=== PATIENT | male | born 1970 | race Caucasian/White ===

== ENCOUNTER 2020-11-08 11:49 | Day surgery (SDC) | payer BC ==
[~2020-11-08] VITALS: Ht 180.3 cm; Wt 122.0 kg
[~2020-11-08 11:49] MED LIST: ABAC300; ARIP10 PO; BENZ2 PO; C COMPLEX1000 M1 PO; Desyrel50 MG; ENVEGA; FISH1000 PO; FLUO20 PO; HALO5 PO; HYDPAM25; HYDPAM25 PO; Hydroxyzine HCl50 MG PO; IBUP600 PO; LAMO100 PO; LAMO50 PO; LATUDA20 MG PO; LORA2 PO; MILK THISTLE PO; MULTI-VITAMIN1 EAC2 PO; OMEGA-3 FISH O1 EAC6 PO; OSTERA TABLET1 EACH PO; PALI3TAB PO; PALI6TA PO; PRED20 PO; Prozac20 MG PO; QUET100 PO; QUET25 PO; QUETIAPINE FUM400 M3 PO; SERT50 PO; TOCO1000 PO; VIT1CAPS12 PO; Vitamin D2000 UNIT PO; ZOLP5 PO; [UNRECOGNIZED DRUG - OTHER] PO
[2020-11-08] MEDS ORDERED: ATORVASTATIN CA20 MG PO (12:47)
[2020-11-08] MEDS ORDERED: OMEP20ER PO (12:50)
--- NOTE | 2020-11-08 13:22 | NUR ---
11/08/20 1322 Cara Man ([place]ese[place] PT UPDATED ON DELAY. PT RESTING COMFORTABLY IN BED, CALL LIGHT WITHIN REACH. PT DENIES NEEDS AT THIS TIME. LIGHTS DIMMED FOR COMFORT.
== END 2020-11-08 15:52 | disposition home or self-care (01) ==
LOC: ORSCSDS 11:49
PROVIDERS: Surgery
PROC: 0WUF0JZ Supplement Abdominal Wall with Synthetic Substitute, Open Approach (ICD-10-PCS; principal; 2020-11-08 13:00)
DX: K42.9 Umbilical hernia without obstruction or gangrene (principal); K21.9 Gastro-esophageal reflux disease without esophagitis; B19.20 Unspecified viral hepatitis C without hepatic coma; Z87.891 Personal history of nicotine dependence; E78.5 Hyperlipidemia, unspecified; E66.01 Morbid (severe) obesity due to excess calories; Z68.37 Body mass index [BMI] 37.0-37.9, adult; Z79.899 Other long term (current) drug therapy
CPT/HCPCS: A9270; C1781; J0690; J1100; J2250; J2405; J3010; J7120

== ENCOUNTER 2022-04-09 07:04 | Day surgery (SDC) | payer OTHER ==
[~2022-04-09] VITALS: Ht 182.9 cm; Wt 103.6 kg
[~2022-04-09 07:04] MED LIST changes: +ATORVASTATIN CA20 MG PO; +OMEP20ER PO; +Voltaren100 GM TOP
--- NOTE | 2022-04-09 08:17 | NUR ---
04/09/22 0817 Shy Bonilla HISTORY, CHART, MEDICATIONS AND ALLERGIES REVIEWED BEFORE START OF PROCEDURE. PATIENT CONFIRMS NPO STATUS AND AGREES WITH SCHEDULED PROCEDURE. 3-LEAD EKG REVIEWED WITH PHYSICIAN PRIOR TO START OF PROCEDURE. MONITOR INTACT WITH CONTINUOUS PULSE OXIMETRY,CAPNOGRAPHY, 3-LEAD EKG, INTERMITTENT BP. SUPPLEMENTAL O2 TO BE TITRATED THROUGHOUT PROCEDURE TO MAINTAIN O2 SATURATION ABOVE 90%. PATIENT DETERMINED TO BE ASA APPROPRIATE FOR PROPOFOL SEDATION PRIOR TO START OF PROCEDURE BY DR. LYON. MALLAMPATI CLASS 1 AIRWAY: COMPLETE VISULATIZATION OF THE SOFT PALATE. STOP BANG ASSESSMENT SCORE 2.
--- NOTE | 2022-04-09 09:23 | NUR ---
RECEIVED PATIENT AND REPORT IN SDU, VITAL SIGNS STABLE. PATIENT EDUCATION & DISCHARGE INFORMATION PROVIDED, DENIES ISSUES OR COMPLICATIONS. PT DISCHARGED IN STABLE CONDITION.
== END 2022-04-09 09:38 | disposition home or self-care (01) ==
LOC: ORSCMMR 07:04 → ORD 08:15 → ORSCSDS 08:15 → ORSCMMR 08:15
PROVIDERS: Internal Medicine Gastroenterology
PROC: 0DBA8ZX Excision of Jejunum, Via Natural or Artificial Opening Endoscopic, Diagnostic (ICD-10-PCS; principal; 2022-04-09 08:15)
PROC: 0DJD8ZZ Inspection of Lower Intestinal Tract, Via Natural or Artificial Opening Endoscopic (ICD-10-PCS; principal; 2022-04-09 08:15)
PROC: 0DB68ZX Excision of Stomach, Via Natural or Artificial Opening Endoscopic, Diagnostic (ICD-10-PCS; principal; 2022-04-09 08:15)
PROC: 0DB98ZX Excision of Duodenum, Via Natural or Artificial Opening Endoscopic, Diagnostic (ICD-10-PCS; principal; 2022-04-09 08:15)
DX: K21.9 Gastro-esophageal reflux disease without esophagitis (principal); K64.4 Residual hemorrhoidal skin tags; R10.13 Epigastric pain; R11.0 Nausea; R63.4 Abnormal weight loss; B18.2 Chronic viral hepatitis C; Z79.899 Other long term (current) drug therapy; Z80.0 Family history of malignant neoplasm of digestive organs; Z87.891 Personal history of nicotine dependence; R10.84 Generalized abdominal pain
CPT/HCPCS: 88305; 88342; J2250; J2405; J2704; J7120